=== PATIENT | female | born 1935 | race Caucasian/White ===

== ENCOUNTER 2017-12-19 15:15 | Inpatient (IN) | payer MEDICARE ==
--- NOTE | 2017-12-19 15:45 | ED Physician Chart ---
ED Chief Complaint/HPI - Patient Information Date Seen:: 12/19/17 Time Seen:: 15:20 Chief Complaint:: decrease in activities of daily living History of Present Illness:: Patient lives at home with her . She says she feels fine. She does mention she is hearing impaired and has had a stroke and uses a walker. Patient fell a few days ago and hurt her left buttocks. Historian:: Patient Review:: Nurse's Note Reviewed ED Review of Systems - Review of Systems General/Constitutional: No fever, No chills Skin: No skin lesions Head: No headache Eyes: No loss of vision ENT: No earache Neck: No neck pain Cardio Vascular: No chest pain Pulmonary: No SOB GI: No nausea, No vomiting, No diarrhea G/U: No dysuria Musculoskeletal: No bone or joint pain Endocrine: No polyuria, No polydipsia Psychiatric: No prior psych history, No depression, No anxiety Hematopoietic: No bruising Allergic/Immuno: No urticaria ED Past Medical History - Past Medical History Past Medical History: Other (.) Family History: Heart disease Social History: Non Smoker, No Alcohol Surgical History: None Psychiatricy History: None Medication: None Family Medical History - Family Member Mother History Unknown: Yes ED Physical Exam - Physical Examination General/Constitutional: Awake, Well-developed, well-nourished, Alert, No distress, GCS 15, Non-toxic appearing, Ambulatory Head: Atraumatic Eyes: Lids, conjuctiva normal, PERRL, EOMI Skin: Nl inspection, No rash, No skin lesions, No ecchymosis, Well hydrated, No lymphadenopathy ENMT: External ears, nose nl, Nasal exam nl, Lips, teeth, gums nl Neck: Nontender, Full ROM w/o pain, No JVD, No nuchal rigidity, No bruit, No mass, No stridor Respiratory: Nl effort/Exclusion, Clear to Auscultation, No Wheeze/Rhonchi/Rales Cardio Vascular: RRR, No murmur, gallop, rubs, NL S1 S2 GI: No tenderness/rebounding/guarding, No organomegaly, No hernia, Normal BS's, Nondistended, No mass/bruits, No McBurney tenderness : No CVA tenderness Extremities: No tenderness or effusion, Full ROM, normal strength in all extremities, No edema, Normal digits & nails Neuro/Psych: Alert/oriented, DTR's symmetric, Normal sensory exam, Normal motor strength, Judgement/insight normal, Mood normal, Normal gait, No focal deficits Misc: Normal back, No paraspinal tenderness ED Labs/Radiology/EKG Results - Lab Results Results: Laboratory Results - last 24 hr 12/19/17 12/19/17 12/19/17 16:01 16:01 16:01 WBC 9.8 RBC 3.94 Hgb 13.3 Hct 39.0 L MCV 99.0 MCH 33.8 H MCHC Differential 34.2 RDW 12.1 Plt Count 318 MPV 6.6 Neutrophils % 52.2 Lymphocytes % 35.4 Monocytes % 10.9 H Eosinophils % 0.8 Basophils % 0.7 PT 11.2 INR 1.08 PTT (Actin FS) 28.2 Sodium 134 L Potassium 3.8 Chloride 103 Carbon Dioxide 26.0 Anion Gap 8.8 BUN 13 Creatinine 0.6 Est GFR ( Amer) TNP Est GFR (Non-Af Amer) TNP BUN/Creatinine Ratio 21.7 Glucose 99 Calcium 9.0 Magnesium 2.3 - Radiology Results Results: AP of the pelvis showed no fracture - EKG Interpretations Rate & Rhythm: atrial fibrillation with a rate of 99 ED Septic Shock - . Is Septic Shock (SBP<90, OR Lactate>4 mmol\L) present?: No ED Reassessment (Disposition) - Reassessment Reassessment Condition:: Unchanged - Diagnosis Diagnosis:: Cardiac arrhythmia - Patient Disposition Admitted to:: Med/Surg Spoke to:: Amairani Anderson Admitting Medical Physician:: Amairani Anderson Condition at Disposition:: Stable, Unchanged
[2017-12-19 16:09] LABS: % BASOPHILS 0.7 % (0.0-2.0); % EOSINOPHILS 0.8 % (0.0-5.0); % LYMPHOCYTES 35.4 % (20.0-50.0); % MONOCYTES 10.9 % (2.0-10.0); % NEUTROPHILS 52.2 % (40.0-80.0); BASOPHILE ABSOLUTE 0.1 Th/cumm (0-0.2); EOSINOPHILE ABSOLUTE 0.1 Th/cmm (0.1-0.4); HEMOGLOBIN 13.3 gm/dL (12-16); LYMPHOCYTE ABSOLUTE 3.5 Th/cmm (1.5-3.0); MEAN CORPUSCULAR HEMOGLOBIN 33.8 pg (27.0-31.0); MEAN CORPUSCULAR HGB CONC 34.2 pg (28.0-36.0); MEAN PLATELET VOLUME 6.6 fl; MONOCYTE ABSOLUTE 1.1 Th/cmm (0.3-1.0); PLATELET COUNT 318 Th/cmm (150-400); RED BLOOD COUNT 3.94 Mil/cmm (3.80-5.20); RED CELL DISTRIBUTION WIDTH 12.1 % (11.5-20.0); WHITE BLOOD COUNT 9.8 Th/cmm (4.8-10.8)
[2017-12-19 16:23] LABS: ANION GAP 8.8 (7.0-16.0); BUN - UREA NITROGEN 13 mg/dL (7-25); CHLORIDE 103 mEq/L (98-107); CREATININE - SERUM 0.6 mg/dL (0.6-1.2); GLUCOSE 99 mg/dL (70-105); MAGNESIUM 2.3 mg/dL (1.9-2.7); POTASSIUM SERUM 3.8 mEq/L (3.5-5.1); SODIUM SERUM 134 mEq/L (136-145)
[2017-12-19 16:37] LABS: INR 1.08 (0.5-1.4); PROTHROMBIN TIME (TEST) 11.2 SECONDS (9.5-11.5)
[2017-12-20 06:25] LABS: % BASOPHILS 0.5 % (0.0-2.0); % LYMPHOCYTES 36.3 % (20.0-50.0); % MONOCYTES 10.8 % (2.0-10.0); % NEUTROPHILS 51.4 % (40.0-80.0); EOSINOPHILE ABSOLUTE 0.1 Th/cmm (0.1-0.4); HEMATOCRIT 41.4 % (41.0-60); HEMOGLOBIN 14.1 gm/dL (12-16); LYMPHOCYTE ABSOLUTE 3.3 Th/cmm (1.5-3.0); MEAN CELL VOLUME 97.7 fl (81-100); MEAN CORPUSCULAR HEMOGLOBIN 33.2 pg (27.0-31.0); NEUTROPHILE ABSOLUTE 4.8 Th/cmm (1.8-8.0); PLATELET COUNT 315 Th/cmm (150-400); RED BLOOD COUNT 4.23 Mil/cmm (3.80-5.20); RED CELL DISTRIBUTION WIDTH 12.4 % (11.5-20.0); WHITE BLOOD COUNT 9.2 Th/cmm (4.8-10.8)
[2017-12-20 06:54] LABS: ALB/GLOB RATIO 1.4 (1.0-1.8); ALBUMIN 3.8 gm/dL (3.7-5.3); ALKALINE PHOSPHATASE 129 U/L (34-104); ANION GAP 10.9 (7.0-16.0); BILIRUBIN,TOTAL 0.7 mg/dL (0.3-1.0); BUN - UREA NITROGEN 10 mg/dL (7-25); CALCIUM SERUM 9.2 mg/dL (8.6-10.3); CARBON DIOXIDE 23.7 mEq/L (21.0-31.0); CHLORIDE 104 mEq/L (98-107); CHOLESTEROL 168 mg/dL (<200); CREATININE - SERUM 0.6 mg/dL (0.6-1.2); GLUCOSE 107 mg/dL (70-105); HDL -HIGH DENSITY LIPOPROTEIN 58 mg/dL (23-92); POTASSIUM SERUM 3.6 mEq/L (3.5-5.1); SGOT 17 U/L (13-39); SGPT/ALT 15 U/L (7-52); SODIUM SERUM 135 mEq/L (136-145); TOTAL PROTEIN,SERUM 6.6 gm/dL (6.0-8.3); TRIGLYCERIDES 54 mg/dL (<150)
[2017-12-20 07:06] VITALS: BP 132/70
--- NOTE | 2017-12-20 08:37 | Diagnostic Imaging Report ---
Pelvis (single view) HISTORY: Pain, trauma No acute bony abnormalities. No fractures. Severe degenerative changes noted in the lumbar spine. Degenerative changes seen about sacroiliac joints. IMPRESSION: 1. No acute abnormalities
[2017-12-20] MEDS ORDERED: Non-Formulary Item 1 EA (Apixaban [Eliquis] 2.5 MG) PO SCH (09:00)
[2017-12-20] MEDS ORDERED: VTE Chemical Prophylaxis Screen/Admission MC PRN (12:11)
[2017-12-20] MEDS ORDERED: Enoxaparin 60 mg/0.6 mL 0.6mL Syr SUBQ SCH (13:00)
--- NOTE | 2017-12-20 14:48 | History & Physical ---
ADMIT DATE: 12/20/2017 DICTATED FOR: Dr. Anderson CHIEF COMPLAINT: Decrease in activities of daily living. HISTORY OF PRESENT ILLNESS: This is an 82-year-old female who is a poor historian. The patient is very confused. According to ER records, the patient has been having decrease in activity of daily living. For further management, the patient is now admitted here to the telemetry unit. The patient also had a recent fall a few days ago and hurt her buttocks as well. In the ER, the patient was found to be in intermittent AFib as well. PAST MEDICAL HISTORY: Recent stroke. PAST SURGICAL HISTORY: Unknown. SOCIAL HISTORY: The patient lives at home with her . MEDICATIONS: Please see medication sheet. FAMILY HISTORY: Noncontributory. REVIEW OF SYSTEMS: Unable to obtain, the patient is very confused. PHYSICAL EXAMINATION: GENERAL: Elderly female who appears to be very confused, in no apparent distress. VITAL SIGNS: Temperature 97, heart rate 88, blood pressure 137/90, respiration 18, O2 96%. HEENT: Head normocephalic, atraumatic. NECK: Supple. No mass. LUNGS: Clear bilaterally. HEART: Regular rhythm. ABDOMEN: Soft, nontender. LABORATORY AND DIAGNOSTIC DATA: WBC 9.2, H and H 14.1/41.4, platelet of 315. Sodium 135, potassium 3.6, chloride 104, BUN 10, creatinine 0.6. DIAGNOSTICS: The patient had an x-ray of the pelvis done, negative for any fractures. ASSESSMENT: Intermittent AFib, cardiomyopathy, generalized weakness, confusion. PLAN: We will get Cardiology on the case as well as Psychiatry. Fall precautions will be initiated. We will continue to follow this patient. JOB# [id number]
--- NOTE | 2017-12-20 18:21 | Consultation ---
DATE OF CONSULTATION: 12/19/[address] Anderson. HISTORY OF PRESENT ILLNESS: This is an 82-year-old female patient who had a fall. Following this, the patient had injury to the left buttock. The patient came to the Emergency Room, the patient was found to have atrial fibrillation. Thus patient is admitted. PAST MEDICAL HISTORY: The patient has a history of deafness, CVA with late effect walks with a walker, cardiomyopathy, atrial fibrillation, and osteoporosis. FAMILY HISTORY: Unremarkable. SOCIAL HISTORY: No history of smoking, alcohol abuse. ALLERGIES: None. PHYSICAL EXAMINATION: VITAL SIGNS: Blood pressure 130/80, pulse 70 irregular, and respirations 28. HEAD: Normocephalic. No lumps or bumps. EYES: Pupils equal, reactive to light. Fundi show AV nicking, sclerae white, conjunctivae pink. NECK: Carotid 2+. Normal upstroke. JVD flat. Thyroid not palpable. Lymph nodes not palpable. CHEST: Shows increased AP diameter. No kyphosis, scoliosis. LUNGS: Bilateral rales. Decreased breath sounds both the bases. HEART: PMI sixth intercostal space with lateral to midclavicular line. S1 irregular. S2, S3, S4, soft systolic murmur. ABDOMEN: Soft. Liver, spleen not palpable. No organomegaly. Bowel sounds active. NEUROLOGIC: Unremarkable. EXTREMITIES: Peripheral pulses 2+. No pedal edema. CLINICAL IMPRESSION: Atrial fibrillation, cardiomyopathy, deafness, cerebrovascular accident with late effect. PLAN: We will get a BNP level to rule out congestive heart failure. Since the patient has frequent falls, we have to consider not to anticoagulate the patient, high risk of fall. We will get an echocardiogram. JOB# [id number]
--- NOTE | 2017-12-20 19:56 | History & Physical ---
ADMIT DATE: 12/20/2017 PHYSICIAN REQUESTING CONSULTATION: Dr. Anderson. REASON FOR CONSULTATION: Confusion and anxiety. HISTORY OF PRESENT ILLNESS: This patient is an 82-year-old woman acutely confused and has been diagnosed with chronic atrial fibrillation. The patient has been admitted over here for stabilization of her cardiac functioning and chart is reviewed. The patient is interviewed. During the interview, the patient has been stating that she has been extremely anxious and is stating that she does not want to take any sleeping pill. The patient is getting easily frustrated. Sleep is noted to be poor. Appetite is noted to be fair at this time. The patient has been very, very anxious. The patient's staff are reporting that the patient is confused and has been trying to get out of the bed unassisted several times and without any worry that she is going to be hurting herself. PAST PSYCHIATRIC HISTORY: Details are not known. SOCIAL HISTORY: The patient is reported that she is and living with her at home. MENTAL EXAMINATION: The patient is an 82-year-old thin built, cooperative. Eye contact is fair. Mood is noted to be irritable. Affect is constricted. The patient is extremely anxious and is stating that she is afraid that she is not going to be sleeping tonight. The patient has been perseverative and asking the same thing again and again. The patient's short term memory noted to be poor. Long-term memory seems to be fair at this time. The patient's insight and judgment are noted to be impaired. The patient is fixated on her anxiety. DIAGNOSTIC IMPRESSION: AXIS I: Dementia and behavioral change, secondary trait. PLAN: To use the BuSpar 5 mg twice a day for her anxiety and supplement with Ativan on a p.r.n. basis. I encouraged the patient to verbalize the concerns rather than to act out. Thank you Dr. Anderson for allowing me to participate in the care of the patient. [facility]# [id number]
--- NOTE | 2017-12-21 09:28 | Consultation ---
DATE OF CONSULTATION: 12/20/2017 GASTROINTESTINAL CONSULTATION CONSULTING PHYSICIAN: Dr. Anderson. REASON FOR CONSULTATION: Presumed failure to thrive at home. HISTORY OF PRESENT ILLNESS: The patient is an 82-year-old female with past medical history of reportedly atrial fibrillation and congestive heart failure who was admitted to the hospital after a fall. At the current time, the patient is telling me that she feels well, has no pain issues at all and is able to walk. She is unclear why she is in the hospital and she is alert and oriented x 3. According to the nursing staff, it was reported that the patient was not eating well at home and that is why the GI consultation was placed for possible G-tube; however, this patient has eaten her breakfast very well and has been asked for second portion. She does not want a G-tube and is very adamant about this. PAST MEDICAL HISTORY: The patient denies medical history, but there is reported history in the chart of atrial fibrillation and heart disease. PAST SURGICAL HISTORY: The patient denies abdominal surgery. FAMILY HISTORY: Noncontributory. SOCIAL HISTORY: The patient denies smoking, drinking or use illicit drugs. REVIEW OF SYSTEMS: A 12-point review of systems was performed. The patient is negative other than the pertinent positives are mentioned in the history of present illness. CURRENT MEDICATIONS: Include BuSpar, Ativan. PHYSICAL EXAMINATION: VITAL SIGNS: Blood pressure is 132/70, pulse 92 beats per minute, respiratory rate of 18, temperature 98.6. Oxygenation is 98% on room air. GENERAL: The patient is lying on her side. Alert and oriented x 3. She is in no apparent distress. HEENT: Normocephalic, atraumatic appearing head. Pupils are equal and reactive to light. Extraocular muscles are intact. NECK: Supple. No JVD or thyromegaly. CHEST: Reduced breath sounds at both bases. CARDIOVASCULAR: S1, S2 are present and irregularly irregular rhythm. ABDOMEN: Soft, nontender to palpation. No guarding, no rebound. EXTREMITIES: No pitting edema is noted. There is nonpitting edema bilaterally. Pulses were not present. SKIN: There are no obvious jaundice. LABORATORY DATA: White blood cell count is 9.2, hemoglobin 14.1, platelet count is 315. INR is 1.08. Sodium 135, BUN 10, creatinine 0.6, AST 17, ALT 15, total bilirubin 0.7. IMAGING STUDIES: A pelvis x-ray was performed, shows no acute abnormalities. IMPRESSION: This is an 82-year-old female admitted to the hospital after a fall at home. 1. Reported history of dysphagia, failure to thrive. 2. Fall. 3. History of atrial fibrillation. DISCUSSION: At this point, the patient is eating well, is asking for seconds on her breakfast portion and there is no indication that she needs a G-tube. She also has denied any abdominal pain issues and any pain issues at all. Furthermore, I asked her if she ever want a feeding tube placement and she says that she would not like this done. She does have somewhat of an odd affect. There may be some delirium or dementia present here, but there does not appear to be any acute GI issues at this point. RECOMMENDATIONS: 1. Continue feeding as tolerated by the patient. 2. Workup of the patient's fall in atrial fibrillation as per primary. 3. If the patient does develop dysphagia or is inability to eat her meals or if she would consent to a G-tube, please call GI and we can do this while the patient is here. For the time being, will sign off this case. Please called me for further questions. JOB# [id number]
--- NOTE | 2017-12-21 21:57 | Progress Notes ---
DATE: 12/21/2017 SUBJECTIVE: The patient was seen by the hallway sitting in a Maura chair. According to nurses, the patient has been refusing care. The patient even refuses EKG to be done today, but otherwise the patient appears to be in no acute distress. The patient is supposedly to be discharged to a correction facility, but unfortunately the family did not agree with placement, hence communicated with the social work manager that they want to explore other options. OBJECTIVE: VITAL SIGNS: Temperature 98.1, heart rate of 82, blood pressure 96/55, respiration of 18, 98% on room air. HEENT: Head is atraumatic and normocephalic. Eyes: Bilateral conjunctivae are clear. Bilateral pupils are equally round and reactive. NECK: Supple. No JVD. CARDIOVASCULAR: S1 and S2, without murmur. PULMONARY: Clear to auscultation. GASTROINTESTINAL: Soft and nontender without guarding. Positive bowel sounds. MUSCULOSKELETAL: No clubbing. No cyanosis noted. ASSESSMENT: 1. Dementia. 2. Atrial fibrillation. 3. Cardiomyopathy. 4. History of cerebrovascular accident. PLAN: The patient is pending for discharge. alteration worker has been looking for a correction facility for the patient to be moved in. The family is aware of the plan. Treatment plans were discussed with the patient's nurse. Treatment plans were discussed with Dr. Anderson. JOB# [id number]
--- NOTE | 2017-12-22 11:14 | General Progress Note ---
Subjective - Review of Systems Events since last encounter: 82 yr old female patient awake , looks comfortable confused at times Objective - Results Result Diagrams: 12/20/17 05:50 12/20/17 05:50 Recent Labs: Laboratory Last Values WBC 9.2 Th/cmm (4.8-10.8) 12/20/17 05:50 RBC 4.23 Mil/cmm (3.80-5.20) 12/20/17 05:50 Hgb 14.1 gm/dL (12-16) 12/20/17 05:50 Hct 41.4 % (41.0-60) 12/20/17 05:50 MCV 97.7 fl (81-100) 12/20/17 05:50 MCH 33.2 pg (27.0-31.0) H 12/20/17 05:50 MCHC Differential 34.0 pg (28.0-36.0) 12/20/17 05:50 RDW 12.4 % (11.5-20.0) 12/20/17 05:50 Plt Count 315 Th/cmm (150-400) 12/20/17 05:50 MPV 7.0 fl 12/20/17 05:50 Neutrophils % 51.4 % (40.0-80.0) 12/20/17 05:50 Lymphocytes % 36.3 % (20.0-50.0) 12/20/17 05:50 Monocytes % 10.8 % (2.0-10.0) H 12/20/17 05:50 Eosinophils % 1.0 % (0.0-5.0) 12/20/17 05:50 Basophils % 0.5 % (0.0-2.0) 12/20/17 05:50 PT 11.2 SECONDS (9.5-11.5) 12/19/17 16:01 INR 1.08 (0.5-1.4) 12/19/17 16:01 PTT (Actin FS) 28.2 SECONDS (26.0-38.0) 12/19/17 16:01 Sodium 135 mEq/L (136-145) L 12/20/17 05:50 Potassium 3.6 mEq/L (3.5-5.1) 12/20/17 05:50 Chloride 104 mEq/L (98-107) 12/20/17 05:50 Carbon Dioxide 23.7 mEq/L (21.0-31.0) 12/20/17 05:50 Anion Gap 10.9 (7.0-16.0) 12/20/17 05:50 BUN 10 mg/dL (7-25) 12/20/17 05:50 Creatinine 0.6 mg/dL (0.6-1.2) 12/20/17 05:50 Est GFR ( Amer) TNP 12/20/17 05:50 Est GFR (Non-Af Amer) TNP 12/20/17 05:50 BUN/Creatinine Ratio 16.7 12/20/17 05:50 Glucose 107 mg/dL (70-105) H 12/20/17 05:50 Calcium 9.2 mg/dL (8.6-10.3) 12/20/17 05:50 Magnesium 2.3 mg/dL (1.9-2.7) 12/19/17 16:01 Total Bilirubin 0.7 mg/dL (0.3-1.0) 12/20/17 05:50 AST 17 U/L (13-39) 12/20/17 05:50 ALT 15 U/L (7-52) 12/20/17 05:50 Alkaline Phosphatase 129 U/L (34-104) H 12/20/17 05:50 Total Protein 6.6 gm/dL (6.0-8.3) 12/20/17 05:50 Albumin 3.8 gm/dL (3.7-5.3) 12/20/17 05:50 Globulin 2.8 gm/dL 12/20/17 05:50 Albumin/Globulin Ratio 1.4 (1.0-1.8) 12/20/17 05:50 Triglycerides 54 mg/dL (<150) 12/20/17 05:50 Cholesterol 168 mg/dL (<200) 12/20/17 05:50 LDL Cholesterol Direct 93 mg/dL (75-193) 12/20/17 05:50 HDL Cholesterol 58 mg/dL (23-92) 12/20/17 05:50 TSH 1.04 uIU/ml (0.34-5.60) 12/20/17 05:50 - Physical Exam Vitals and I&O: Vital Signs Temp 96.9 F 12/22/17 07:40 Pulse 104 12/22/17 07:40 Resp 18 12/22/17 07:40 BP 110/73 12/22/17 07:40 Pulse Ox 96 12/22/17 07:40 Intake & Output 12/21/17 12/22/17 12/22/17 18:59 06:59 18:59 Other: Stool Characteristics Soft Soft Formed Formed Active Medications: Current Medications Buspirone HCl (Buspar) 5 mg PO BID BART; Protocol Stop: 02/18/18 08:59 Last Admin: 12/22/17 08:21 Dose: 5 mg Lorazepam (Ativan) 0.5 mg IVP Q4HR PRN; Protocol PRN Reason: Agitation Stop: 02/18/18 14:50 Last Admin: 12/22/17 02:37 Dose: 0.5 mg Miscellaneous (Vte [employer] Prophylaxis Screen/ Admission) 1 ea MC PRN PRN PRN Reason: PROTOCOL Stop: 02/18/18 12:10 Rivaroxaban (Xarelto) 10 mg PO DAILY BART Stop: 02/19/18 08:59 Last Admin: 12/22/17 08:21 Dose: 10 mg Zolpidem Tartrate (Ambien) 5 mg PO HS PRN PRN Reason: Insomnia Stop: 02/18/18 19:07 Last Admin: 12/22/17 02:43 Dose: 5 mg General: No acute distress HEENT: Atraumatic Neck: Supple Cardiovascular: Regular rate Assessment/Plan - Problem List Patient Problems: All Active Problems Atrial fibrillation (Acute) I48.91 Cardiomyopathy (Acute) I42.9 Dementia (Acute) F03.90 H/O: CVA (cerebrovascular accident) (Acute) Z86.73 - Plan Plan: monitor vitals/diet labs placement
[2017-12-23 06:11] LABS: % BASOPHILS 0.6 % (0.0-2.0); % EOSINOPHILS 1.5 % (0.0-5.0); % LYMPHOCYTES 33.8 % (20.0-50.0); % MONOCYTES 9.1 % (2.0-10.0); BASOPHILE ABSOLUTE 0.1 Th/cumm (0-0.2); EOSINOPHILE ABSOLUTE 0.2 Th/cmm (0.1-0.4); HEMATOCRIT 46.1 % (41.0-60); HEMOGLOBIN 15.2 gm/dL (12-16); LYMPHOCYTE ABSOLUTE 3.4 Th/cmm (1.5-3.0); MEAN CELL VOLUME 99.9 fl (81-100); MEAN PLATELET VOLUME 7.5 fl; MONOCYTE ABSOLUTE 0.9 Th/cmm (0.3-1.0); NEUTROPHILE ABSOLUTE 5.5 Th/cmm (1.8-8.0); PLATELET COUNT 366 Th/cmm (150-400); RED BLOOD COUNT 4.61 Mil/cmm (3.80-5.20); WHITE BLOOD COUNT 10.1 Th/cmm (4.8-10.8)
[2017-12-23 06:20] LABS: ANION GAP 10.5 (7.0-16.0); BUN - UREA NITROGEN 16 mg/dL (7-25); CALCIUM SERUM 9.2 mg/dL (8.6-10.3); CARBON DIOXIDE 25.3 mEq/L (21.0-31.0); CHLORIDE 103 mEq/L (98-107); CREATININE - SERUM 0.7 mg/dL (0.6-1.2); GLUCOSE 110 mg/dL (70-105); POTASSIUM SERUM 3.8 mEq/L (3.5-5.1); SODIUM SERUM 135 mEq/L (136-145)
--- NOTE | 2017-12-23 13:42 | Cardiology ---
12/21/[address] Anderson. M-MODE ECHOCARDIOGRAM: Mitral valve, anterior leaflet of mitral valve shows normal excursion, EF velocity. Posterior leaflet of the mitral valve shows normal excursion. Left ventricular posterior wall shows increased thickness, normal excursion. Interventricular septum shows increased thickness, normal excursion, hypertrophy of the left ventricle, ejection fraction 55%. Left atrium normal. Aortic root shows normal dimension, normal excursion of aortic leaflets. CONCLUSION: Hypertrophy of the left ventricle, ejection fraction 55%. 2D ECHO: Long axis view showed normal sized left ventricle with hypertrophy of the left ventricle. Left atrium normal. Aortic root shows normal dimension, normal excursion of aortic leaflets. Short axis view of mitral valve normal. Short axis view of aortic valve normal. Apical four chamber view showed normal sized left ventricle with hypertrophy of the left ventricle. Left atrium normal. Right ventricular cavity, right atrium normal, no pericardial effusion. CONCLUSION: Hypertrophy of the left ventricle, ejection fraction 55%. Doppler study shows moderate mitral regurgitation, moderate tricuspid regurgitation, right ventricular systolic pressure 39 mmHg. JOB# [id number]
== END 2017-12-23 15:50 | DRG 308 ==
LOC: ER 15:15 → EDBD 15:15 → TELE 17:24 → MSI 12-21 13:13
PROVIDERS: ADMIT Internal Medicine; ATTEND Internal Medicine
DX: I48.91 Unspecified atrial fibrillation (principal); G93.40 Encephalopathy, unspecified; F03.91 Unspecified dementia, unspecified severity, with behavioral disturbance; I42.9 Cardiomyopathy, unspecified; I50.9 Heart failure, unspecified; W18.30XA Fall on same level, unspecified, initial encounter; Y93.89 Activity, other specified; Y92.89 Other specified places as the place of occurrence of the external cause; Y99.8 Other external cause status; R62.7 Adult failure to thrive; M81.0 Age-related osteoporosis without current pathological fracture; I69.30 Unspecified sequelae of cerebral infarction; H91.90 Unspecified hearing loss, unspecified ear
CPT/HCPCS: 36415-UA; 72170-TC; 80048-TC; 80053-TC; 80061-TC; 83735-TC; 84443-TC; 85025-TC; 85610-TC; 85730-TC; 93005; J2060; Z7610